=== PATIENT | female | born 1970 | race Caucasian/White ===

== ENCOUNTER 2022-11-23 06:03 | Emergency (ER) | payer OTHER ==
[~2022-11-23] VITALS: Ht 157.4 cm; Wt 90.7 kg
[2022-11-23] MEDS ORDERED: ASPIRIN ADULT L81 M2 PO (06:15)
[2022-11-23] MEDS ORDERED: VICTOZA 3-0.6 MG/0.1 SQ (06:15)
[2022-11-23] MEDS ORDERED: LANTUS SOL100 UNIT/1 SC (06:15)
[2022-11-23] MEDS ORDERED: GLIPIZIDE5 M1 PO (06:15)
[2022-11-23] MEDS ORDERED: AMOX-CLAV 875-1 EACH PO (06:23)
[2022-11-23] MEDS ORDERED: MELOXICAM15 MG PO (06:23)
== END 2022-11-23 06:46 | disposition home or self-care (01) ==
LOC: ED 06:03 → EDBD 06:08 → ED 06:46
DX: K08.89 Other specified disorders of teeth and supporting structures (principal); Z79.82 Long term (current) use of aspirin; Z79.899 Other long term (current) drug therapy; Z79.4 Long term (current) use of insulin

== ENCOUNTER 2023-05-11 11:07 | Emergency (ER) | payer SELFPAY ==
[~2023-05-11] VITALS: Ht 157.4 cm; Wt 95.3 kg
[~2023-05-11 11:07] MED LIST: AMOX-CLAV 875-1 EACH PO; ASPIRIN ADULT L81 M2 PO; GLIPIZIDE5 M1 PO; LANTUS SOL100 UNIT/1 SC; MELOXICAM15 MG PO; VICTOZA 3-0.6 MG/0.1 SQ
[2023-05-11] MEDS ORDERED: CEPHALEXIN500 M1 PO ×2 (12:59→17:38)
== END 2023-05-11 13:03 | disposition home or self-care (01) ==
LOC: ED 11:07
DX: S91.211A Laceration without foreign body of right great toe with damage to nail, initial encounter (principal); W20.8XXA Other cause of strike by thrown, projected or falling object, initial encounter; Y93.89 Activity, other specified; Y92.89 Other specified places as the place of occurrence of the external cause; Y99.8 Other external cause status

== ENCOUNTER 2023-09-28 20:30 | Emergency (ER) | payer SELFPAY ==
[~2023-09-28] VITALS: Ht 1584 cm; Wt 99.8 kg
[~2023-09-28 20:30] MED LIST changes: +CEPHALEXIN500 M1 PO
[2023-09-28] MEDS ORDERED: PENICILLIN VK500 MG PO (21:06)
[2023-09-28] MEDS ORDERED: Lidocaine Hydrochloride 15 ML UDC PO STA (21:06)
[2023-09-28] MEDS ORDERED: BENZOCAINE 20% 11.9 GM GEL T STA (21:06)
[2023-09-28] MEDS ORDERED: IBUPROFEN 800 MG TAB PO ONE (21:10)
[2023-09-28] MEDS ORDERED: PENICILLIN V POTASSIUM 500 MG TAB PO ONE (21:10)
== END 2023-09-28 21:54 | disposition home or self-care (01) ==
LOC: ED 20:30
DX: K08.89 Other specified disorders of teeth and supporting structures (principal); E11.9 Type 2 diabetes mellitus without complications

== ENCOUNTER 2024-04-24 12:47 | Emergency (ER) | payer OTHER ==
[~2024-04-24] VITALS: Wt 99.8 kg
[~2024-04-24 12:47] MED LIST changes: +PENICILLIN VK500 MG PO
[2024-04-24] MEDS ORDERED: JANUVIA100 MG PO (13:05)
[2024-04-24] MEDS ORDERED: LISINOPRIL10 M1 PO (13:05)
[2024-04-24] MEDS ORDERED: METFORMIN HYDR750 MG PO (13:06)
[2024-04-24] MEDS ORDERED: ROSUVASTATIN CA20 MG PO (13:06)
[2024-04-24] MEDS ORDERED: NOVOLOG FL100 UNIT/2 SQ (13:07)
[2024-04-24] MEDS ORDERED: LANTUS100 UNIT/1 SC (13:08)
[2024-04-24] MEDS ORDERED: ACETAMINOPHEN 325 MG TAB PO ONE (13:20)
[2024-04-24] MEDS ORDERED: TAMIFLU 75MG CA75 MG PO (14:15)
== END 2024-04-24 16:44 | disposition home or self-care (01) ==
LOC: ED 12:47
DX: J10.1 Influenza due to other identified influenza virus with other respiratory manifestations (principal); Z20.822 Contact with and (suspected) exposure to COVID-19; E11.9 Type 2 diabetes mellitus without complications; Z79.82 Long term (current) use of aspirin; Z79.84 Long term (current) use of oral hypoglycemic drugs; Z79.4 Long term (current) use of insulin

== ENCOUNTER 2024-10-04 21:50 | Emergency (ER) | payer OTHER ==
[~2024-10-04] VITALS: Ht 157.4 cm; Wt 99.6 kg
[~2024-10-04 21:50] MED LIST changes: +JANUVIA100 MG PO; +LANTUS100 UNIT/1 SC; +LISINOPRIL10 M1 PO; +METFORMIN HYDR750 MG PO; +NOVOLOG FL100 UNIT/2 SQ; +ROSUVASTATIN CA20 MG PO; +TAMIFLU 75MG CA75 MG PO
[2024-10-04 22:37] LABS: BASO # 0.1 10*3/uL (0.0-0.1); BASO % 0.5 % (0.0-1.0); EOS # 0.2 10*3/uL (0.0-0.4); EOS % 1.9 % (1.0-4.0); HEMATOCRIT 44.7 % (37.0-47.0); MEAN CELL VOLUME 81.6 fl (81.0-99.0); MEAN CORPUSCULAR HGB 26.1 pg (27.0-31.0); MEAN PLATELET VOLUME 9.5 fl (9.6-12.3); MONO # 0.9 10*3/uL (0.1-1.0); MONO % 9.8 % (3.0-9.0); NEUT # 5.9 10*3/uL (2.3-7.9); NEUT % 62.8 % (47.0-73.0); PLATELET COUNT AUTOMATED 271 10*3/uL (130-400); RED BLOOD COUNT 5.48 10*6/uL (4.10-5.10); RED CELL DISTRI WIDTH 12.8 % (0-14.5); WHITE BLOOD COUNT 9.4 10*3/uL (4.8-10.8)
[2024-10-04 23:14] LABS: ALKALINE PHOSPHATASE 119 U/L (46-116); BUN 18 mg/dl (9-23); CHLORIDE 102 mmol/L (98-107); POTASSIUM 4.4 mmol/L (3.4-5.1); SGPT/ALT 20 U/L (5-49); TOTAL PROTEIN 7.2 gm/dL (6.0-8.0)
[2024-10-05] MEDS ORDERED: Ketorolac Tromethamine 60 MG/2 ML VIAL IM ONE (01:05)
== END 2024-10-05 01:39 | disposition home or self-care (01) ==
LOC: ED 21:50
PROVIDERS: Nurse Practitioner Family
DX: K31.89 Other diseases of stomach and duodenum (principal); K80.20 Calculus of gallbladder without cholecystitis without obstruction; E11.65 Type 2 diabetes mellitus with hyperglycemia; I10 Essential (primary) hypertension; Z87.442 Personal history of urinary calculi; Z79.82 Long term (current) use of aspirin; Z79.899 Other long term (current) drug therapy; Z79.84 Long term (current) use of oral hypoglycemic drugs

== ENCOUNTER 2024-10-15 06:18 | Emergency (ER) | payer OTHER ==
[~2024-10-15] VITALS: Ht 157.4 cm; Wt 108.9 kg
[2024-10-15] MEDS ORDERED: Dexamethasone Sodium Phospha 20 MG/5 ML VIAL IV ONE (07:15)
[2024-10-15] MEDS ORDERED: Ondansetron Hydrochloride 4 MG/2 ML VIAL IV ONE (07:15)
[2024-10-15] MEDS ORDERED: diazePAM 5 MG TAB PO ONE (07:15)
[2024-10-15] MEDS ORDERED: NAPROSYN500 MG PO (08:11)
[2024-10-15] MEDS ORDERED: TRAMADOL HCL50 MG PO (08:11)
[2024-10-15] MEDS ORDERED: PREDNISONE20 M1 PO (08:11)
== END 2024-10-15 08:17 | disposition home or self-care (01) ==
LOC: ED 06:18
DX: S39.012A Strain of muscle, fascia and tendon of lower back, initial encounter (principal); M54.16 Radiculopathy, lumbar region; I10 Essential (primary) hypertension; E11.9 Type 2 diabetes mellitus without complications; Z79.82 Long term (current) use of aspirin; Z79.4 Long term (current) use of insulin; Z79.899 Other long term (current) drug therapy; Z98.890 Other specified postprocedural states; X58.XXXA Exposure to other specified factors, initial encounter; Y93.89 Activity, other specified; Y92.89 Other specified places as the place of occurrence of the external cause; Y99.8 Other external cause status